=== PATIENT | female | born 1970 | race Hispanic/Latino ===

== ENCOUNTER 2019-10-19 18:57 | Emergency (ER) | payer MEDICAID ==
[2019-10-19 19:15] VITALS: BP 140/82
--- NOTE | 2019-10-19 21:50 | Emergency Department Report ---
Abscess Boil HPI - HPI Chief Complaint: Skin/Abscess/Foreign Body Stated Complaint: CYST ON BACK OF HEAD Time Seen by Provider: 10/19/19 21:13 Duration: 5 Days Location: Head Severity: Mild History: Yes Pain, No Fever, No Purulent Drainage, No Numbness, No Foreign Body, No Previous History, No Insect Bite HPI: This is a 49-year-old female nontoxic, well nourished in appearance, no acute signs of distress presents to the ED with c/o of redness, swelling, and pain to occipital head area. Patient denies any pus or drainage. Patient denies any fever, chills, nausea, vomiting, chest pain, shortness of breath, headache or stiff neck. Patient denies any allergies or significant past medical history. Home Medications: Home Medications Medication Instructions Recorded Confirmed Last Taken Butalbit/Acetamin/Caff/Codeine 1 each PO Q4HR PRN 01/25/13 10/26/14 10/25/14 [Fioricet-Cod 63-15-963-40 Cap] 1 Percocet 10-325 mg 1 tab PO Q6H 10/26/14 10/26/14 10/25/14 1 Soma 350 mg PO QID 10/26/14 10/26/14 10/25/14 1 Xanax TAB 0.1 mg PO Q4H PRN 10/26/14 10/26/14 10/25/14 1 Previous Rx's Medication Instructions Recorded Last Taken Type Hydrocodone Bit/Acetaminophen 1 each PO Q6H PRN #12 tablet 03/21/13 10/25/14 Rx [Lortab 5-500 Tablet] 1 Acetaminophen/Codeine [Tylenol 1 tab PO Q6H PRN #14 tab 10/19/19 Unknown Rx /Codeine # 3 tab] Clindamycin [Clindamycin CAP] 300 mg PO Q8H #21 cap 10/19/19 Unknown Rx Allergies/Adverse Reactions: Allergies Allergy/AdvReac Type Severity Reaction Status Date / Time No Known Allergies Allergy Verified 10/25/14 18:43 ED Review of Systems ROS: Stated complaint: CYST ON BACK OF HEAD Other details as noted in HPI Constitutional: denies: chills, fever Eyes: denies: eye pain, eye discharge, vision change ENT: denies: ear pain, throat pain Respiratory: denies: cough, shortness of breath, wheezing Cardiovascular: denies: chest pain, palpitations Endocrine: no symptoms reported Gastrointestinal: denies: abdominal pain, nausea, diarrhea Genitourinary: denies: urgency, dysuria, discharge Musculoskeletal: denies: back pain, joint swelling, arthralgia Skin: denies: rash, lesions Neurological: denies: headache, weakness, paresthesias Psychiatric: denies: anxiety, depression Hematological/Lymphatic: denies: easy bleeding, easy bruising ED Past Medical Hx - Past Medical History Previous Medical History?: Yes Hx CVA: Yes Hx Headaches / Migraines: Yes Additional medical history: chronic back pain,. History of traumatic intracranial hemorrhage - Surgical History Past Surgical History?: Yes Additional Surgical History: csections x 3. gastric bypass. left knee surgery - Social History Smoking Status: Never Smoker Substance Use Type: None - Medications Home Medications: Home Medications Medication Instructions Recorded Confirmed Last Taken Type Butalbit/Acetamin/Caff/Codeine 1 each PO Q4HR PRN 01/25/13 10/26/14 10/25/14 History [Fioricet-Cod 57-29-165-40 Cap] 1 Hydrocodone Bit/Acetaminophen 1 each PO Q6H PRN #12 tablet 03/21/13 10/26/14 10/25/14 Rx [Lortab 5-500 Tablet] 1 Percocet 10-325 mg 1 tab PO Q6H 10/26/14 10/26/14 10/25/14 History 1 Soma 350 mg PO QID 10/26/14 10/26/14 10/25/14 History 1 Xanax TAB 0.1 mg PO Q4H PRN 10/26/14 10/26/14 10/25/14 History 1 Acetaminophen/Codeine [Tylenol 1 tab PO Q6H PRN #14 tab 10/19/19 Unknown Rx /Codeine # 3 tab] Clindamycin [Clindamycin CAP] 300 mg PO Q8H #21 cap 10/19/19 Unknown Rx ED Abscess Boil Physical Exam - Exam General: Vital signs noted. No distress. Alert and acting appropriately. Front/Back of Body, Lg (Color): 1 - 3 cm abscess Size: 3 cm Exam: Yes Tenderness, Yes Fluctuance, Yes Normal Neurologic Exam, Yes Normal C irculation, No Surrounding Cellulites/Erythema, No Lymphangitis, No Crepitation, No Heart Murmur I & D Note - I & D Note I & D Note: Under sterile field, I used Betadine to cleanse the area. I then used 18-gauge hypo-with 6 cc syringe and aspirated. About 1 ml of purulent drainage has been noted. A sterile 4 x 4 with tape has been applied as dressing. Bleeding is under control. Patient tolerated the procedure well with no signs of distress noted. ED Course Vital Signs 10/19/19 19:09 Temperature 98.7 F Pulse Rate 108 H Respiratory 20 Rate Blood Pressure 140/82 O2 Sat by Pulse 100 Oximetry - Reevaluation(s) Reevaluation #1: 10/19/19 21:48 Patient is speaking in full sentences with no signs of distress noted. Critical care attestation.: If time is entered above; I have spent that time in minutes in the direct care of this critically ill patient, excluding procedure time. ED Medical Decision Making - Medical Decision Making This is a 49-year-old female that presents with abscess. Patient is stable and was examined by me. This is incision and drainage and has been performed and patient tolerated well. A sterile dressing has been applied. Patient was educated on proper wound care. Patient is discharged with Clinda and Tylenol with codeine and was instructed not to operate any machinery while taking Tylenol with codeine due to drowsiness. Patient was instructed to refer to Follow-up with a primary care doctor in 3-5 days or if symptoms worsen and continue return to emergency room as soon as possible. At time of discharge, the patient does not seem toxic or ill in appearance. No acute signs of distress noted. Patient agrees to discharge treatment plan of care. No further questions noted by the patient. ED Disposition Clinical Impression: Abscess, Encounter for incision and drainage procedure Disposition: TO HOME OR SELFCARE Is pt being admited?: No Does the pt Need Aspirin: No Condition: Stable Instructions: Incision and Drainage (ED), Abscess (ED), Acetaminophen/Codeine (By mouth) Additional Instructions: Follow-up with a primary care doctor in 3-5 days or if symptoms worsen and continue return to emergency room as soon as possible. Do not operate any machinery while taking Tylenol with codeine as this may cause drowsiness. Prescriptions: Clindamycin [Clindamycin CAP] 300 mg PO Q8H #21 cap Acetaminophen/Codeine [Tylenol /Codeine # 3 tab] 1 tab PO Q6H PRN #14 tab PRN Reason: Pain , Severe (7-10) Referrals: PRIMARY MD LIBERTAD [Primary Care Provider] - 3-5 Days ANETA NELSON MD [Staff Physician] - 3-5 Days [facility] [Provider Group] - 3-5 Days Forms: Work/School Release Form(ED)
== END 2019-10-19 21:59 | disposition home or self-care (01) ==
LOC: ED 18:57
DX: L02.811 Cutaneous abscess of head [any part, except face] (principal); G43.909 Migraine, unspecified, not intractable, without status migrainosus; Z86.73 Personal history of transient ischemic attack (TIA), and cerebral infarction without residual deficits; Z98.890 Other specified postprocedural states; Z79.2 Long term (current) use of antibiotics; Z79.899 Other long term (current) drug therapy
CPT/HCPCS: 99282

== ENCOUNTER 2021-03-10 11:34 | Emergency (ER) | payer MEDICARE ==
[2021-03-10 11:51] VITALS: BP 135/61
[2021-03-10 12:45] LABS: Calcium 9.7 mg/dL (8.4-10.2)
[2021-03-10 13:33] LABS: Basophils % (Auto) 0.8 % (0.0-1.8); Eosinophils % (Auto) 0.7 % (0.0-4.3); Hematocrit 26.4 % (30.3-42.9); Hemoglobin 8.2 gm/dl (10.1-14.3); Lymphocytes # (Auto) 0.7 K/mm3 (1.2-5.4); Lymphocytes % (Auto) 16.4 % (13.4-35.0); Mean Corpuscular HGB Conc 31 % (30-34); Monocytes # (Auto) 0.4 K/mm3 (0.0-0.8); Platelet Count 375 K/mm3 (140-440); Red Blood Count 4.14 M/mm3 (3.65-5.03)
[2021-03-10 13:37] LABS: Mean Corpuscular Volume 64 fl (79-97); Red Cell Distribution Width 20.7 % (13.2-15.2)
[2021-03-10 13:47] LABS: INR 0.94 (0.87-1.13); Partial Thromboplastin Time 31.4 Sec. (24.2-36.6)
--- NOTE | 2021-03-10 13:54 | Emergency Department Report ---
ED Recheck HPI - General Chief Complaint: Laceration/Recheck/Suture Stated Complaint: WHITE BLOOD LOW/BACK PAIN Time Seen by Provider: 03/10/21 12:00 Source: patient Mode of arrival: Ambulatory Limitations: No Limitations - History of Present Illness Initial Comments: This is a 50-year-old female nontoxic, well nourished in appearance, no acute signs of distress presents to the ED for abnormal hemoglobin levels. Patient stated that her primary 4 days ago instructed patient to go to the emergency room due to low hemoglobin levels. Patient otherwise denies any symptoms or complaints. Patient denies any weakness, fatigue, chest pain, shortness of breath, headache, stiff neck, numbness, tingling, flank or back pain. Patient denies any allergies. Patient stated she does have history of anemia but has not been taking her iron supplements as she should. Complaint: abnormal lab -: days(s) Returns Today for: CBOAL Symptoms Since Prior Visit: no new symptoms Context: called for abnorm lab res Associated Symptoms: none. denies: fever, chills, chest pain, shortness of breath, rash, malaise, nasuea, abdominal pain - Related Data Home Medications Medication Instructions Recorded Confirmed Last Taken Butalbit/Acetamin/Caff/Codeine 1 each PO Q4HR PRN 01/25/13 10/26/14 10/25/14 [Fioricet-Cod 03-53-600-40 Cap] 1 Percocet 10-325 mg 1 tab PO Q6H 10/26/14 10/26/14 10/25/14 1 Soma 350 mg PO QID 10/26/14 10/26/14 10/25/14 1 Xanax TAB 0.1 mg PO Q4H PRN 10/26/14 10/26/14 10/25/14 1 Previous Rx's Medication Instructions Recorded Last Taken Type Hydrocodone Bit/Acetaminophen 1 each PO Q6H PRN #12 tablet 03/21/13 10/25/14 Rx [Lortab 5-500 Tablet] 1 Acetaminophen/Codeine [Tylenol 1 tab PO Q6H PRN #14 tab 10/19/19 Unknown Rx /Codeine # 3 tab] Clindamycin [Clindamycin CAP] 300 mg PO Q8H #21 cap 10/19/19 Unknown Rx Ferrous Sulfate [Iron 325 MG] 325 mg PO DAILY #30 tablet 10/18/21 Unknown Rx Allergies Allergy/AdvReac Type Severity Reaction Status Date / Time No Known Allergies Allergy Verified 10/25/14 18:43 ED Review of Systems ROS: Stated complaint: WHITE BLOOD LOW/BACK PAIN Other details as noted in HPI Comment: All other systems reviewed and negative Constitutional: denies: chills, fever Eyes: denies: eye pain, eye discharge, vision change ENT: denies: ear pain, throat pain Respiratory: denies: cough, shortness of breath, wheezing Cardiovascular: denies: chest pain, palpitations Endocrine: no symptoms reported Gastrointestinal: denies: abdominal pain, nausea, diarrhea Genitourinary: denies: urgency, dysuria, discharge Musculoskeletal: denies: back pain, joint swelling, arthralgia Skin: denies: rash, lesions Neurological: denies: headache, weakness, paresthesias Psychiatric: denies: anxiety, depression Hematological/Lymphatic: denies: easy bleeding, easy bruising ED Past Medical Hx - Past Medical History Previous Medical History?: Yes Hx CVA: Yes Hx Headaches / Migraines: Yes Additional medical history: chronic back pain,. History of traumatic intracranial hemorrhage - Surgical History Past Surgical History?: Yes Additional Surgical History: csections x 3. gastric bypass. left knee surgery - Social History Smoking Status: Never Smoker Substance Use Type: None - Medications Home Medications: Home Medications Medication Instructions Recorded Confirmed Last Taken Type Butalbit/Acetamin/Caff/Codeine 1 each PO Q4HR PRN 01/25/13 10/26/14 10/25/14 History [Fioricet-Cod 12-00-021-40 Cap] 1 Hydrocodone Bit/Acetaminophen 1 each PO Q6H PRN #12 tablet 03/21/13 10/26/14 10/25/14 Rx [Lortab 5-500 Tablet] 1 Percocet 10-325 mg 1 tab PO Q6H 10/26/14 10/26/14 10/25/14 History 1 Soma 350 mg PO QID 10/26/14 10/26/14 10/25/14 History 1 Xanax TAB 0.1 mg PO Q4H PRN 10/26/14 10/26/14 10/25/14 History 1 Acetaminophen/Codeine [Tylenol 1 tab PO Q6H PRN #14 tab 10/19/19 Unknown Rx /Codeine # 3 tab] Clindamycin [Clindamycin CAP] 300 mg PO Q8H #21 cap 10/19/19 Unknown Rx Ferrous Sulfate [Iron 325 MG] 325 mg PO DAILY #30 tablet 03/10/21 Unknown Rx ED Physical Exam - General Limitations: No Limitations General appearance: alert, in no apparent distress - Head Head exam: Present: atraumatic, normocephalic - Eye Eye exam: Present: normal appearance, PERRL, EOMI - Neck Neck exam: Present: normal inspection, full ROM. Absent: lymphadenopathy - Respiratory Respiratory exam: Absent: respiratory distress - Cardiovascular Cardiovascular Exam: Present: regular rate - GI/Abdominal GI/Abdominal exam: Present: soft, normal bowel sounds. Absent: distended, tenderness, guarding, rebound, rigid, diminished bowel sounds - Extremities Exam Extremities exam: Present: normal inspection, full ROM, normal capillary refill. Absent: tenderness - Back Exam Back exam: Present: normal inspection, full ROM. Absent: tenderness, CVA tenderness (R), CVA tenderness (L), muscle spasm, paraspinal tenderness, vertebral tenderness, rash noted - Neurological Exam Neurological exam: Present: alert, oriented X3, normal gait - Psychiatric Psychiatric exam: Present: normal affect, normal mood - Skin Skin exam: Present: warm, dry, intact, normal color. Absent: rash ED Course Vital Signs 03/10/21 11:47 Temperature 98.1 F Pulse Rate 99 H Respiratory 16 Rate Blood Pressure 135/61 [Left] O2 Sat by Pulse 99 Oximetry - Reevaluation(s) Reevaluation #1: 03/10/21 13:51 Patient is speaking in full sentences with no signs of distress noted. Critical care attestation.: If time is entered above; I have spent that time in minutes in the direct care of this critically ill patient, excluding procedure time. ED Disposition Clinical Impression: Low hemoglobin and low hematocrit, Hypokalemia Anemia Qualifiers: Anemia type: iron deficiency Iron deficiency anemia type: unspecified iron deficiency Qualified Code(s): D50.9 - Iron deficiency anemia, unspecified Disposition: HOME / SELF CARE / HOMELESS Is pt being admited?: No Does the pt Need Aspirin: No Condition: Stable Instructions: Hypokalemia, Potassium Content of Foods, Preventing Iron Deficiency Anemia, Adult Additional Instructions: Follow-up with a primary care doctor in 3-5 days or if symptoms worsen and continue return to emergency room as soon as possible. Prescriptions: Ferrous Sulfate [Iron 325 MG] 325 mg PO DAILY #30 tablet Referrals: PRIMARY CAREMD [Referring] - 3-5 Days ANETA NELSON MD [Staff Physician] - 3-5 Days Time of Disposition: 14:01 ED Medical Decision Making - Lab Data Result diagrams: 03/10/21 12:08 03/10/21 12:08 Lab Results 03/10/21 03/10/21 03/10/21 Range/Units 12:08 12:08 12:08 WBC 4.4 L (4.5-11.0) K/mm3 RBC 4.14 (3.65-5.03) M/mm3 Hgb 8.2 L (10.1-14.3) gm/dl Hct 26.4 L (30.3-42.9) % MCV 64 L (79-97) fl MCH 20 L (28-32) pg MCHC 31 (30-34) % RDW 20.7 H (13.2-15.2) % Plt Count 375 (140-440) K/mm3 Lymph % (Auto) 16.4 (13.4-35.0) % [place] % (Auto) 8.0 H (0.0-7.3) % Eos % (Auto) 0.7 (0.0-4.3) % Baso % (Auto) 0.8 (0.0-1.8) % Lymph # (Auto) 0.7 L (1.2-5.4) K/mm3 [place] # (Auto) 0.4 (0.0-0.8) K/mm3 Eos # (Auto) 0.0 (0.0-0.4) K/mm3 Baso # (Auto) 0.0 (0.0-0.1) K/mm3 Seg Neutrophils % 74.1 H (40.0-70.0) % Seg Neutrophils # 3.3 (1.8-7.7) K/mm3 PT 13.6 (12.2-14.9) Sec. INR 0.94 (0.87-1.13) APTT 31.4 (24.2-36.6) Sec. Sodium 136 L (137-145) mmol/L Potassium 3.4 L (3.6-5.0) mmol/L Chloride 95.7 L (98-107) mmol/L Carbon Dioxide 28 (22-30) mmol/L Anion Gap 16 mmol/L BUN 16 (7-17) mg/dL Creatinine 1.1 (0.6-1.2) mg/dL Estimated GFR 53 ml/min BUN/Creatinine Ratio 15 % Glucose 112 H (65-100) mg/dL Calcium 9.7 (8.4-10.2) mg/dL - Medical Decision Making This is a 50-year-old female that presents with anemia. Patient is stable and was examined by me. Physical exam otherwise is unremarkable. I will refill patient's ferrous sulfate medication and patient was instructed to take medication as prescribed. At this time patient does not need blood transfusion. Patient was instructed to follow-up with a primary care doctor in 3-5 days or if symptoms worsen and continue return to emergency room as soon as possible. At time of discharge, the patient does not seem toxic or ill in appearance. No acute signs of distress noted. Patient agrees to discharge treatment plan of care. No further questions noted by the patient.
== END 2021-03-10 14:54 | disposition home or self-care (01) ==
LOC: ED 11:34
DX: D64.9 Anemia, unspecified (principal); E87.6 Hypokalemia; Z86.73 Personal history of transient ischemic attack (TIA), and cerebral infarction without residual deficits
CPT/HCPCS: 36415; 80048; 85025; 85610; 85730; 99283